=== PATIENT | female | born 1985 | race Caucasian/White ===

== ENCOUNTER 2016-06-26 15:51 | Emergency (ER) | payer OTHER ==
[2016-06-26 16:16] VITALS: BP 109/59; PULSE 52; TEMP 97.3; BMI 30.2
[2016-06-26] MEDS ORDERED: IBUPROFEN 400 MG TABLET (FP) PO ONE ×2 (16:48→16:53)
--- NOTE | 2016-06-26 16:55 | PDOC ---
History of Present Illness - General Chief Complaint: Edema Stated Complaint: LEGS,HAND SWELLING/BACK PAIN Time Seen by Provider: 06/26/16 16:29 History Source: Patient - History of Present Illness Timing/Duration: other Associated Symptoms: denies: fever/chills, nausea/vomiting Past History - Past Medical History Allergies/Adverse Reactions: Allergies Allergy/AdvReac Type Severity Reaction Status Date / Time No Known Allergies Allergy Verified 06/26/16 16:15 Home Medications: Ambulatory Orders Cephalexin [Keflex] 500 mg PO Q6H #28 capsule 06/26/16 Ibuprofen [Motrin -] 800 mg PO Q6H #30 tablet 06/26/16 Asthma: No Cancer: No Cardiac Disorders: No Diabetes: No HTN: No Seizures: No Thyroid Disease: No - Reproductive History (#): 2 Para: 3 Cervical CA: No Dysfunctional Uterine Bleeding: No Ectopic : No Endometrial CA: No Polycystic Ovaries: No Therapeutic (s) & number: No Tubal Ligation: No Spontaneous : 0 - Immunization History Immunization Up to Date: Yes - Psycho/Social/Smoking Cessation Hx Anxiety: No Suicidal Ideation: No Smoking History: Never smoked Have you smoked in the past 12 months: No Number of Cigarettes Smoked Daily: 0 Information on smoking cessation initiated: No Hx Alcohol Use: No Drug/Substance Use Hx: No Substance Use Type: None Hx Substance Use Treatment: No Review of Systems - Review of Systems Constitutional: No: Chills, Fever ABD/GI: No: Nausea, Vomiting : No: Dysuria, Flank Pain, Hematuria Musculoskeletal: Yes: Back Pain *Physical Exam - Vital Signs Last Vital Signs Temp Pulse Resp BP Pulse Ox 97.3 F L 52 L 20 109/59 98 06/26/16 16:11 06/26/16 16:11 06/26/16 16:11 06/26/16 16:11 06/26/16 16:11 - Physical Exam General Appearance: Yes: Appropriately Dressed. No: Apparent Distress HEENT: positive: Normal Voice Neck: positive: Supple Respiratory/Chest: negative: Respiratory Distress Gastrointestinal/Abdominal: positive: Soft. negative: Tender Musculoskeletal: positive: Normal Inspection. negative: CVA Tenderness, CVA Tenderness (R), Vertebral Tenderness Extremity: positive: Other (minimal erythema and tenderness to paronychium of L great toe, no induration or discharge). negative: Tender, Swelling, Erythema Integumentary: positive: Dry, Warm Neurologic: positive: Fully Oriented, Alert, Normal Mood/Affect Medical Decision Making - Medical Decision Making 06/26/16 16:49 30 yo F, , s/p tubal ligation p/w multiple complaints today including swelling to hands x 1 week. Denies pain or skin changes otherwise. No h/o same. No new meds. No truama. Also reports mid lower back pain x several days, unable to describe, approximately 6 out of 10 with no exacerbated by sitting. Not taking anything for pain. No abd pain, n/v or dysuria. Patient also complaining of left great toe pain that she suspects may be secondary to an ingrown nail. States she did cut off portion of nail that was growing into skin but pain persists. See exam Lower back pain M/l MSK No redflags at this time, i.e infxn, etc -dc w/ pain control B/l hand swelling No obvious swelling on exam and no skin changes otherwise -pmd f/u as needed Early paronychia +ttp to paronychim of L great toe, no induration to drain -dc w/ abx and warm compress w/ instructions to return for worsening 06/26/16 16:59 06/26/16 17:30 *DC/Admit/Observation/Transfer Diagnosis at time of Disposition: Back pain Qualifiers: Back pain location: low back pain Chronicity: acute Back pain laterality: bilateral Sciatica presence: without sciatica Qualified Code(s): M54.5 - Low back pain Paronychia Qualifiers: Laterality: left Qualified Code(s): L03.012 - Cellulitis of left finger - Discharge Dispostion Disposition: HOME Condition at time of disposition: Good - Prescriptions Prescriptions: Cephalexin [Keflex] 500 mg PO Q6H #28 capsule Ibuprofen [Motrin -] 800 mg PO Q6H #30 tablet - Patient Instructions Printed Discharge Instructions: DI for Low Back Pain, DI for Paronychia Additional Instructions: Apply warm compresses several times a day to L toe and take antibiotics as directed Return to ED for worsening of symptoms, otherwise follow up with your PMD
[2016-06-26 17:02] LABS: URINE APPEARANCE CLEAR; URINE BILIRUBIN NEGATIVE (NEGATIVE); URINE COLOR LTYELLOW; URINE GLUCOSE (UA) NEGATIVE (NEGATIVE); URINE KETONE NEGATIVE (NEGATIVE); URINE LEUK ESTERASE NEGATIVE (NEGATIVE); URINE NITRITE NEGATIVE (NEGATIVE); URINE PROTEIN NEGATIVE (NEGATIVE); URINE UROBILINOGEN NEGATIVE E.U./dl (0.2-1.0)
[2016-06-26 17:21] LABS: URINE BLOOD 2+ (NEGATIVE)
[2016-06-26 18:09] LABS: URINE MUCUS RARE; URINE RBC 30 /hpf (0-3); URINE WBC 1 /hpf (3-5)
== END 2016-06-26 17:44 | disposition home or self-care (01) ==
LOC: JERFT 15:51 → JER 15:51 → JERFT 17:44
DX: M54.5 Low back pain (principal); L03.032 Cellulitis of left toe
CPT/HCPCS: 81003; 81015; 84703; 99281-25

== ENCOUNTER 2016-08-01 23:28 | Emergency (ER) | payer OTHER ==
[2016-08-02] VITALS: TEMP 98.1; BMI 30.2
[2016-08-02 00:10] LABS: URINE APPEARANCE SLCLOUDY; URINE BILIRUBIN NEGATIVE (NEGATIVE); URINE COLOR YELLOW; URINE GLUCOSE (UA) NEGATIVE (NEGATIVE); URINE KETONE NEGATIVE (NEGATIVE); URINE NITRITE NEGATIVE (NEGATIVE); URINE PROTEIN NEGATIVE (NEGATIVE); URINE UROBILINOGEN NEGATIVE E.U./dl (0.2-1.0)
[2016-08-02 00:14] LABS: URINE BLOOD 3+ (NEGATIVE); URINE LEUK ESTERASE 1+ (NEGATIVE)
[2016-08-02 00:15] LABS: URINE BACTERIA RARE /hpf (NONE SEEN); URINE MUCUS RARE; URINE RBC 51 /hpf (0-3); URINE WBC 55 /hpf (3-5)
--- NOTE | 2016-08-02 00:34 | PDOC ---
History of Present Illness - General History Source: Patient Exam Limitations: No Limitations - History of Present Illness Initial Comments: 08/02/16 01:42 The patient is a 30 year old female () with no significant past medical history who presents to the ED with back pain for 3 weeks. Patient reports lower back left sided and right sided back pain that is worsened when laying down. She reports her symptoms are progressively worsening and her back pain is now constant. Patient states she developed nausea, diarrhea, headache, and foul smelling urine earlier today. Patient states her last menstrual period was 2 months ago. Denies fever or chills. Denies vomiting or abdominal pain. Denies chest pain or shortness of breath. Denies any other symptoms. Social hx: Patient has 2 twin boys (5 years old), a 22 month old son, and a 8 month old son. Surgical hx: Tubal ligation <Oneida Carrera - Last Filed: 08/02/16 01:42> <Piero Oliveira - Last Filed: 08/02/16 04:48> - General Chief Complaint: Pain Stated Complaint: PAIN, ACUTE Past History <Oneida Carrera - Last Filed: 08/02/16 01:42> - Past Medical History Asthma: No Cancer: No Cardiac Disorders: No Diabetes: No HTN: No Seizures: No Thyroid Disease: No - Reproductive History (#): 2 Para: 3 Cervical CA: No Dysfunctional Uterine Bleeding: No Ectopic : No Endometrial CA: No Polycystic Ovaries: No Therapeutic (s) & number: No Tubal Ligation: No Spontaneous : 0 - Immunization History Immunization Up to Date: Yes - Psycho/Social/Smoking Cessation Hx Anxiety: No Suicidal Ideation: No Smoking History: Never smoked Have you smoked in the past 12 months: No Number of Cigarettes Smoked Daily: 0 Hx Alcohol Use: No Drug/Substance Use Hx: No Substance Use Type: None Hx Substance Use Treatment: No <Piero Oliveira - Last Filed: 08/02/16 04:48> - Past Medical History Allergies/Adverse Reactions: Allergies Allergy/AdvReac Type Severity Reaction Status Date / Time No Known Allergies Allergy Verified 08/01/16 23:58 Home Medications: Ambulatory Orders Cephalexin Monohydrate [Keflex -] 500 mg PO Q6H #40 capsule 08/02/16 Metoclopramide HCl [Reglan -] 10 mg PO TID #21 tablet 08/02/16 Oxycodone HCl/Acetaminophen [Percocet 5-325 mg Tablet] 1 - 2 tab PO Q4H #20 tablet MDD 4 08/02/16 Review of Systems - Review of Systems Able to Perform ROS?: Yes Comments:: 08/02/16 01:42 GENERAL/CONSTITUTIONAL: No fever or chills. No weakness. HEAD, EYES, EARS, NOSE AND THROAT: No change in vision. No ear pain or discharge. No sore throat. CARDIOVASCULAR: No chest pain or shortness of breath. RESPIRATORY: No cough, wheezing, or hemoptysis. GASTROINTESTINAL: + nausea, diarrhea No vomiting, or constipation. GENITOURINARY:+ foul smelling urine. No dysuria, frequency. MUSCULOSKELETAL: + back pain. No joint or muscle swelling or pain. No neck. SKIN: No rash NEUROLOGIC: + headache. No vertigo, loss of consciousness, or change in strength /sensation. ENDOCRINE: No increased thirst. No abnormal weight change. HEMATOLOGIC/LYMPHATIC: No anemia, easy bleeding, or history of blood clots. ALLERGIC/IMMUNOLOGIC: No hives or skin allergy. All Other Systems: Reviewed and Negative <Oneida Carrera - Last Filed: 08/02/16 01:42> *Physical Exam - Vital Signs Last Vital Signs Temp Pulse Resp BP Pulse Ox 98.1 F 65 18 116/71 100 08/01/16 23:59 08/01/16 23:59 08/01/16 23:59 08/01/16 23:59 08/01/16 23:59 - Physical Exam Comments: 08/02/16 01:42 GENERAL: Awake, alert, and fully oriented, in no acute distress HEAD: No signs of trauma EYES: PERRLA, EOMI, sclera anicteric, conjunctiva clear ENT: Auricles normal inspection, hearing grossly normal, nares patent, oropharynx clear without exudates. Moist mucosa NECK: Normal ROM, supple, no lymphadenopathy, JVD, or masses LUNGS: Breath sounds equal, clear to auscultation bilaterally. No wheezes, and no crackles HEART: Regular rate and rhythm, normal S1 and S2, no murmurs, rubs or gallops ABDOMEN: Soft, nontender, normoactive bowel sounds. No guarding, no rebound. No masses EXTREMITIES: Normal range of motion, no edema. No clubbing or cyanosis. No cords, erythema, or tenderness Back: + lloyds sign bilaterally NEUROLOGICAL: Normal speech SKIN: Warm, Dry, normal turgor, no rashes or lesions noted. <Oneida Carrera - Last Filed: 08/02/16 01:42> - Vital Signs Last Vital Signs Temp Pulse Resp BP Pulse Ox 98.1 F 65 18 116/71 100 08/01/16 23:59 08/01/16 23:59 08/01/16 23:59 08/01/16 23:59 08/01/16 23:59 <Piero Oliveira - Last Filed: 08/02/16 04:48> ED Treatment Course - ADDITIONAL ORDERS Additional order review: Laboratory Results 08/02/16 00:01 Urine Color Yellow Urine Appearance Slcloudy Urine pH 5.0 Urine Protein Negative Urine Glucose (UA) Negative Urine Ketones Negative Urine Blood 3+ H Urine Nitrite Negative Urine Bilirubin Negative Urine Urobilinogen Negative Ur Leukocyte Esterase 1+ H Urine RBC 51 Urine WBC 55 Ur Epithelial Cells Rare Urine Bacteria Rare Urine Mucus Rare Urine HCG, Qual Negative <Oneida Carrera - Last Filed: 08/02/16 01:42> - LABORATORY CBC & Chemistry Diagram: 08/02/16 01:39 08/02/16 01:39 - ADDITIONAL ORDERS Additional order review: Laboratory Results 08/02/16 00:01 Urine Color Yellow Urine Appearance Slcloudy Urine pH 5.0 Urine Protein Negative Urine Glucose (UA) Negative Urine Ketones Negative Urine Blood 3+ H Urine Nitrite Negative Urine Bilirubin Negative Urine Urobilinogen Negative Ur Leukocyte Esterase 1+ H Urine RBC 51 Urine WBC 55 Ur Epithelial Cells Rare Urine Bacteria Rare Urine Mucus Rare Urine HCG, Qual Negative <Piero Oliveira - Last Filed: 08/02/16 04:48> *DC/Admit/Observation/Transfer - Attestations Scribe Attestion: 08/02/16 01:42 Documentation prepared by Oneida Carrera, acting as medical authorization specialist for Piero Oliveira MD <Oneida Carrera - Last Filed: 08/02/16 01:42> - Discharge Dispostion Admit: No - Attestations Physician Attestion: 08/02/16 00:34 I, Dr. Piero Oliveira, attest that this document has been prepared under my direction and personally reviewed by me in its entirety. I further attest, that it accurately reflects all work, treatment, procedures and medical decision -making performed by me. <Piero Oliveira - Last Filed: 08/02/16 04:48> Diagnosis at time of Disposition: Calculus of kidney - Discharge Dispostion Disposition: HOME Condition at time of disposition: Good - Prescriptions Prescriptions: Cephalexin Monohydrate [Keflex -] 500 mg PO Q6H #40 capsule Oxycodone HCl/Acetaminophen [Percocet 5-325 mg Tablet] 1 - 2 tab PO Q4H #20 tablet MDD 4 Metoclopramide HCl [Reglan -] 10 mg PO TID #21 tablet - Referrals Referrals: Ramez Ramires MD [Primary Care Provider] - Jayant Villarreal MD., [Staff Physician] - - Patient Instructions Printed Discharge Instructions: DI for Kidney Stones Additional Instructions: Sherie- Drink lots of water, See the Urologist This Week. Reglan is for nausea. Keflex is your antibiotic. Percocet is for bad pain, only take it if you absolutely need it..... it is addicting. Return to us if worse. Best- Dr. Piero Oliveira
[2016-08-02] MEDS ORDERED: KETOROLAC TROMETHAMINE 30 MG/1 ML VIAL IVPUSH ONE (01:30)
[2016-08-02] MEDS ORDERED: SODIUM CHLORIDE 1,000 ML IV STA (01:30)
[2016-08-02 01:49] LABS: BASOPHIL 0.5 % (0-2.0); EOSINOPHIL 1.2 % (0-4.5); MCHC 33.1 g/dl (32.0-36.0); MEAN CELL VOLUME 87.7 fl (80-96); MEAN PLT VOLUME 7.7 fl (7.5-11.1); NEUTROPHILS 59.1 % (42.8-82.8); PLATELET COUNT 257 K/MM3 (134-434); RDW 13.9 % (11.6-15.6); WHITE BLOOD COUNT 7.7 K/mm3 (4.0-10.0)
[2016-08-02] MEDS ORDERED: KETOROLAC TROMETHAMINE 30 MG/1 ML VIAL ONE (02:01)
[2016-08-02 02:24] LABS: ALBUMIN 3.7 g/dl (3.4-5.0); ANION GAP 8 (8-16); BILIRUBIN,TOTAL 0.2 mg/dL (0.2-1.0); CALCIUM 8.8 mg/dL (8.5-10.1); CO2 25 mmol/L (21-32); CREATININE 0.5 mg/dL (0.55-1.02); GLUCOSE,RANDOM 89 mg/dL (74-106); SGOT/AST 16 U/L (15-37); SGPT/ALT 19 U/L (12-78); TOT PROT 7.5 g/dl (6.4-8.2)
[2016-08-02 02:25] LABS: ALK PHOS 86 U/L (45-117)
[2016-08-02 04:56] VITALS: BP 114/72; PULSE 61
== END 2016-08-02 04:51 | disposition home or self-care (01) ==
LOC: JER 23:28
PROC: 3E0333Z Introduction of Anti-inflammatory into Peripheral Vein, Percutaneous Approach (ICD-10-PCS; principal; 2016-08-01)
DX: N20.0 Calculus of kidney (principal)
CPT/HCPCS: 36415; 74176-TC; 80053; 81003; 81015; 84703; 85025; 87040; 87086; 87186; 96374; 99282-25

== ENCOUNTER 2017-03-10 21:29 | Emergency (ER) | payer OTHER ==
--- NOTE | 2017-03-10 21:45 | PDOC ---
Rapid Medical Evaluation Time Seen by Provider: 03/10/17 21:37 Medical Evaluation: Allergies Allergy/AdvReac Type Severity Reaction Status Date / Time No Known Allergies Allergy Verified 08/01/16 23:58 03/10/17 21:37 The patient presents with a chief complaint of: Vaginal bleeding. LMP 01/25/17. Pt. states she had a tubal ligation. Admits to nausea, lethargy, abdominal pain. I have performed a brief in-person evaluation of this patient; Pertinent physical exam findings: ambulatory, breathing easily, Soft non-tender abdomen on exam. CTAB I have ordered the following: CBC, CMP, type and screen, beta-hcg The patient will proceed to the ED for further evaluation.
[2017-03-10 21:47] VITALS: BP 118/74; PULSE 95; TEMP 98.6; BMI 32.1
[2017-03-10 22:25] LABS: BASO % 0.5 % (0-2.0); EOS % 0.7 % (0-4.5); HEMATOCRIT 38.6 % (32.4-45.2); HEMOGLOBIN 12.9 GM/dL (10.7-15.3); LYMPH % 29.7 % (8-40); MCH 29.1 pg (25.7-33.7); MCHC 33.5 g/dl (32.0-36.0); MEAN PLT VOLUME 7.5 fl (7.5-11.1); MONO % 6.9 % (3.8-10.2); NEUT % 62.2 % (42.8-82.8); PLATELET COUNT 288 K/MM3 (134-434); RBC 4.44 M/mm3 (3.60-5.2); RDW 13.7 % (11.6-15.6); WHITE BLOOD COUNT 9.8 K/mm3 (4.0-10.0)
--- NOTE | 2017-03-10 22:35 | PDOC ---
History of Present Illness - General History Source: Patient Exam Limitations: No Limitations - History of Present Illness Initial Comments: 03/10/17 22:35 The patient is a 31 year old female (), with no significant past medical history, who presents to the emergency department with nausea, increased appetite, abdominal pain, and vaginal bleeding for approximately 1 day. Patient reports noting light vaginal spotting with associated lower abdominal pain, which she describes as crampy in nature. Patient reports recent missed menses on 02/25/17, however, she states she had a tubal ligation about 1.5 years ago. Patient reports her abdominal pain is different than her period. She reports associated pain with urination, but denies any hematuria, frequency, or urgency. Patient endorses nausea and increased appetite over the past 2 weeks. Patient states she is scheduled for US follow-up with her [facility] in 2 days. Patient denies any fever or chills. She denies any recent travel, sick contacts , or heavy lifting. Allergies: NKDA Past Surgical History: None reported Social History: Non smoker. No ETOH or recreational drug use. <Debbie Davis - Last Filed: 03/11/17 00:57> <Jill Dean - Last Filed: 03/11/17 01:05> - General Chief Complaint: Vaginal Bleeding Stated Complaint: VAGINAL BLEEDING Time Seen by Provider: 03/10/17 21:37 Past History <Debbie Davis - Last Filed: 03/11/17 00:57> - Past Medical History Asthma: No Cancer: No Cardiac Disorders: No Diabetes: No HTN: No Seizures: No Thyroid Disease: No - Reproductive History (#): 2 Para: 3 Cervical CA: No Dysfunctional Uterine Bleeding: No Ectopic : No Endometrial CA: No Polycystic Ovaries: No Therapeutic (s) & number: No Tubal Ligation: No Spontaneous : 0 - Immunization History Immunization Up to Date: Yes - Suicide/Smoking/Psychosocial Hx Smoking History: Never smoked Have you smoked in the past 12 months: No Number of Cigarettes Smoked Daily: 0 Hx Alcohol Use: No Drug/Substance Use Hx: No Substance Use Type: None Hx Substance Use Treatment: No <Jill Dean - Last Filed: 03/11/17 01:05> - Past Medical History Allergies/Adverse Reactions: Allergies Allergy/AdvReac Type Severity Reaction Status Date / Time No Known Allergies Allergy Verified 03/10/17 21:39 Home Medications: Ambulatory Orders Ondansetron [Zofran Odt -] 4 mg SL TID PRN #10 od.tablet 03/11/17 Review of Systems - Review of Systems Able to Perform ROS?: Yes Comments:: 03/10/17 22:35 GENERAL/CONSTITUTIONAL: No fever or chills. No weakness. HEAD, EYES, EARS, NOSE AND THROAT: No change in vision. No ear pain or discharge. No sore throat. GASTROINTESTINAL: No nausea, vomiting, diarrhea or constipation. GENITOURINARY: No dysuria, frequency, or change in urination. CARDIOVASCULAR: No chest pain or shortness of breath. RESPIRATORY: No cough, wheezing, or hemoptysis. MUSCULOSKELETAL: No joint or muscle swelling or pain. No neck or back pain. SKIN: No rash NEUROLOGIC: No headache, vertigo, loss of consciousness, or change in strength/ sensation. ENDOCRINE: Yes increased appetite. No increased thirst. No abnormal weight change. HEMATOLOGIC/LYMPHATIC: No anemia, easy bleeding, or history of blood clots. ALLERGIC/IMMUNOLOGIC: No hives or skin allergy. <Debbie Davis - Last Filed: 03/11/17 00:57> *Physical Exam - Vital Signs Last Vital Signs Temp Pulse Resp BP Pulse Ox 98.6 F 95 H 16 118/74 100 03/10/17 21:39 03/10/17 21:39 03/10/17 21:39 03/10/17 21:39 03/10/17 21:39 - Physical Exam Comments: 03/10/17 22:36 Constitutional: Awake, alert, oriented. No acute distress. Head: Normocephalic. Atraumatic Eyes: PERRL. EOMI. Conjunctivae are not pale. ENT: Mucous membranes are moist and intact. Posterior pharynx without exudates or erythema. Uvula midline. Neck: Supple. Full ROM. No lymphadenopathy. Cardiovascular: Regular rate. Regular rhythm. S1, S2 regular. Distal pulses are 2+ and symmetric. Pulmonary/Chest: No evidence of respiratory distress. Clear to auscultation bilaterally No wheezing, rales or rhonchi. Abdominal: Soft and non-distended. There is no tenderness. No rebound, guarding or rigidity. No organomegaly. No palpable masses. Good bowel sounds. Pelvic: Blood vaginal vault. Cervical Os is closed. No cervical motion tenderness. No adnexal tenderness. Back: No CVA tenderness. Musculoskeletal: No edema. No cyanosis. No clubbing. Full range of motion in all extremities. No calf tenderness. Radial/pedal pulses are intact and 2+ bilaterally Skin: Skin is warm and dry. No petechiae. No purpura. Neurological: Alert and oriented to person, place, and time. Cranial nerves II -XII are grossly intact. Normal speech. Strength is grossly symmetric. No sensory deficits. <Debbie Davis - Last Filed: 03/11/17 00:57> - Vital Signs Last Vital Signs Temp Pulse Resp BP Pulse Ox 98.6 F 95 H 16 118/74 100 03/10/17 21:39 03/10/17 21:39 03/10/17 21:39 03/10/17 21:39 03/10/17 21:39 <Jill Dean - Last Filed: 03/11/17 01:05> ED Treatment Course - LABORATORY CBC & Chemistry Diagram: 03/10/17 10:20 03/10/17 10:20 - ADDITIONAL ORDERS Additional order review: 03/10/17 10:20 RBC 4.44 MCV 87.0 MCHC 33.5 RDW 13.7 MPV 7.5 Neutrophils % 62.2 Lymphocytes % 29.7 Monocytes % 6.9 Eosinophils % 0.7 Basophils % 0.5 - RADIOLOGY Radiograph Interpretation: 03/11/17 00:57 EXAM: Transvaginal US INTERPRETED BY: Dr. Fishman REVIEWED BY: Dr. Dean IMPRESSION: No ovarian torsion. Color flow with appropriate arterial and venous waveforms. Small physiologic free fluid right adnexa. Normal uterus. Endometrial stripe complex 10 mm thick. <Debbie Davis - Last Filed: 03/11/17 00:57> - LABORATORY CBC & Chemistry Diagram: 03/10/17 10:20 03/10/17 10:20 - ADDITIONAL ORDERS Additional order review: 03/10/17 10:20 RBC 4.44 MCV 87.0 MCHC 33.5 RDW 13.7 MPV 7.5 Neutrophils % 62.2 Lymphocytes % 29.7 Monocytes % 6.9 Eosinophils % 0.7 Basophils % 0.5 <Jill Dean - Last Filed: 03/11/17 01:05> Medical Decision Making - Medical Decision Making 03/10/17 22:34 a/p: 31yo female with irregular uterine bleeding -labs -ucg -ua -pelvic ultrasound pending UCG results 03/11/17 00:48 hcg negative ultrasound does not show acute pathology pending UA will give motrin and zofran odt 03/11/17 01:02 urine +blood and protein stable for d/c to home and follow up with out pt docs blood in urine from menstrual cycle 03/11/17 01:05 pt stable for d/c to home discussed ua results <Jill Dean - Last Filed: 03/11/17 01:05> *DC/Admit/Observation/Transfer - Attestations Scribe Attestion: 03/10/17 22:36 Documentation prepared by Debbie Davis, acting as medical director/head team physician for Jill Dean DO. <Debbie Davis - Last Filed: 03/11/17 00:57> - Discharge Dispostion Admit: No - Attestations Physician Attestion: 03/11/17 00:51 I, Dr. Jill Dean DO, attest that this document has been prepared under my direction and personally reviewed by me in its entirety. I further attest, that it accurately reflects all work, treatment, procedures and medical decision -making performed by me. <Jill Dean - Last Filed: 03/11/17 01:05> Diagnosis at time of Disposition: Dysfunctional uterine bleeding, Nausea - Discharge Dispostion Disposition: HOME Condition at time of disposition: Stable - Prescriptions Prescriptions: Ondansetron [Zofran Odt -] 4 mg SL TID PRN #10 od.tablet PRN Reason: Nausea - Referrals Referrals: Franky Abraham MD [Staff Physician] - - Patient Instructions Printed Discharge Instructions: DI for Abnormal Uterine Bleeding Additional Instructions: Please make an appointment to follow up with your [facility]. Please return to the ED with any further complaints. Please take all meds as prescribed. Please take tylenol or motrin as needed for pain.
[2017-03-10 22:53] LABS: ANION GAP 7 (8-16); BILIRUBIN,TOTAL 0.3 mg/dL (0.2-1.0); BLOOD UREA NITROGEN 19 mg/dL (7-18); CALCIUM 7.7 mg/dL (8.5-10.1); CHLORIDE 105 mmol/L (98-107); CO2 24 mmol/L (21-32); CREATININE 0.6 mg/dL (0.55-1.02); GLUCOSE,RANDOM 88 mg/dL (74-106); POTASSIUM 3.9 mmol/L (3.5-5.1); SGOT/AST 10 U/L (15-37); SGPT/ALT 17 U/L (12-78); SODIUM 136 mmol/L (136-145); TOT PROT 7.9 g/dl (6.4-8.2)
[2017-03-10 22:55] LABS: ALK PHOS 72 U/L (45-117)
[2017-03-11] MEDS ORDERED: IBUPROFEN 600 MG TABLET (FP) PO ONE ×2 (00:47→00:50)
[2017-03-11] MEDS ORDERED: ONDANSETRON *ODT* 4 MG TABLET SL ONE (00:48)
[2017-03-11] MEDS ORDERED: ONDANSETRON *ODT* 4 MG TABLET ONE (00:50)
[2017-03-11 00:52] LABS: URINE APPEARANCE CLEAR; URINE BILIRUBIN NEGATIVE (NEGATIVE); URINE BLOOD 3+ (NEGATIVE); URINE COLOR YELLOW; URINE GLUCOSE (UA) NEGATIVE (NEGATIVE); URINE KETONE NEGATIVE (NEGATIVE); URINE LEUK ESTERASE NEGATIVE (NEGATIVE); URINE NITRITE NEGATIVE (NEGATIVE); URINE UROBILINOGEN NEGATIVE mg/dL (0.2-1.0)
[2017-03-11 00:53] LABS: URINE PROTEIN 1+ (NEGATIVE)
[2017-03-11 00:57] LABS: CALCIUM OXALATE CRYSTALS RARE /hpf (NONE SEEN); EPI CELLS RARE /HPF (FEW); URINE BACTERIA FEW /hpf (NONE SEEN); URINE MUCUS RARE
== END 2017-03-11 01:13 | disposition home or self-care (01) ==
LOC: JER 21:29
DX: N93.8 Other specified abnormal uterine and vaginal bleeding (principal); R11.0 Nausea
CPT/HCPCS: 36415; 76830-TC; 80053; 81003; 81015; 84702; 85025; 86850; 86900; 86901; 99281-25

== ENCOUNTER 2017-04-04 19:37 | Emergency (ER) | payer OTHER ==
[2017-04-04 19:48] VITALS: BP 120/69; PULSE 85; TEMP 97.6; BMI 28.3
[2017-04-04 23:25] LABS: BASO % 0.4 % (0-2.0); EOS % 0.8 % (0-4.5); HEMATOCRIT 37.6 % (32.4-45.2); HEMOGLOBIN 12.7 GM/dL (10.7-15.3); LYMPH % 32.3 % (8-40); MCH 29.7 pg (25.7-33.7); MCHC 33.7 g/dl (32.0-36.0); MEAN CELL VOLUME 88.2 fl (80-96); MEAN PLT VOLUME 7.6 fl (7.5-11.1); MONO % 6.1 % (3.8-10.2); NEUT % 60.4 % (42.8-82.8); PLATELET COUNT 270 K/MM3 (134-434); RBC 4.27 M/mm3 (3.60-5.2); WHITE BLOOD COUNT 9.7 K/mm3 (4.0-10.0)
[2017-04-04 23:28] LABS: URINE APPEARANCE SLCLOUDY; URINE BILIRUBIN NEGATIVE (NEGATIVE); URINE BLOOD 3+ (NEGATIVE); URINE COLOR YELLOW; URINE GLUCOSE (UA) NEGATIVE (NEGATIVE); URINE KETONE NEGATIVE (NEGATIVE); URINE LEUK ESTERASE NEGATIVE (NEGATIVE); URINE NITRITE NEGATIVE (NEGATIVE); URINE PROTEIN 1+ (NEGATIVE)
[2017-04-04 23:31] LABS: EPI CELLS FEW /HPF (FEW); URINE BACTERIA RARE /hpf (NONE SEEN); URINE MUCUS MANY
[2017-04-04 23:48] LABS: ALBUMIN 3.7 g/dl (3.4-5.0); ANION GAP 11 (8-16); BLOOD UREA NITROGEN 16 mg/dL (7-18); CALCIUM 8.6 mg/dL (8.5-10.1); CHLORIDE 105 mmol/L (98-107); CO2 23 mmol/L (21-32); CREATININE 0.6 mg/dL (0.55-1.02); GLUCOSE,RANDOM 87 mg/dL (74-106); SGOT/AST 15 U/L (15-37); SGPT/ALT 18 U/L (12-78); SODIUM 139 mmol/L (136-145)
[2017-04-04 23:50] LABS: ALK PHOS 70 U/L (45-117); BILIRUBIN,TOTAL 0.2 mg/dL (0.2-1.0); TOT PROT 7.8 g/dl (6.4-8.2)
--- NOTE | 2017-04-05 00:04 | PDOC ---
History of Present Illness - General Chief Complaint: Pain Stated Complaint: PCP SENT/PAIN, ACUTE Time Seen by Provider: 04/04/17 22:01 History Source: Patient Exam Limitations: No Limitations - History of Present Illness Initial Comments: 04/04/17 23:49 Patient is a 31-year-old female with history of 1, complaining of abdominal pain 1 month associated with daily intermittent nausea and diarrhea. States 5/10 pain is in the lower abdomen mostly constant. About 2 weeks ago went to her [employer] for evaluation. Had ultrasound of the pelvis and then ultrasound of her kidneys, with no acute findings. She was also given prescriptions for Zofran for the nausea with no relief of symptoms. States 2 days ago she developed left-sided sharp stabbing pain 8/10 but intermittently radiated to her bladder and down the left leg. Today she went to urgent care with meds for evaluation of this pain. She states that the CAT scan with oral contrast only of her abdomen was done, just about 5:00 PM was called and referred to the emergency room for evaluation of appendicitis. Denies fever, chills, dysuria. PMD: Dr. Fortune PMHX: as above PSOCHX: neg ALL: NKDA GENERAL/CONSTITUTIONAL: [No fever or chills. No weakness. No weight change.] HEAD, EYES, EARS, NOSE AND THROAT: [No change in vision. No ear pain or discharge. No sore throat.] CARDIOVASCULAR: [No chest pain or shortness of breath.] RESPIRATORY: [No cough, wheezing, or hemoptysis.] GASTROINTESTINAL: (+) nausea, (-) vomiting, (+) diarrhea (-) constipation. No rectal bleeding.] GENITOURINARY: [No dysuria, frequency, or change in urination.] MUSCULOSKELETAL: [No joint or muscle swelling or pain. No neck or back pain.] SKIN AND BREASTS: [No rash or easy bruising.] NEUROLOGIC: [No headache, vertigo, loss of consciousness, or loss of sensation.] PSYCHIATRIC: [No depression or anxiety.] ENDOCRINE: [No increased thirst. No abnormal weight change.] HEMATOLOGIC/LYMPHATIC: [No anemia, easy bleeding, or history of blood clots.] ALLERGIC/IMMUNOLOGIC: [No hives or skin allergy. No latex allergy.] GENERAL: [The patient is awake, alert, and fully oriented, in no acute distress. ] HEAD: [Normal with no signs of trauma.] EYES: [Pupils equal, round and reactive to light, extraocular movements intact, sclera anicteric, conjunctiva clear.] ENT: [Ears normal, nares patent, oropharynx clear without exudates. Moist mucous membranes.] NECK: [Normal range of motion, supple without lymphadenopathy, JVD, or masses.] LUNGS: [Breath sounds equal, clear to auscultation bilaterally. No wheezes, and no crackles.] HEART: [Regular rate and rhythm, normal S1 and S2 without murmur, rub.] ABDOMEN: [Soft, (+) tenderness lower abd/suprapubic tenderness LLQ > RLQ, normoactive bowel sounds. No guarding, no rebound. No masses.] EXTREMITIES: [Normal range of motion, no edema. No clubbing or cyanosis. No cords, erythema, or tenderness.] NEUROLOGICAL: [Cranial nerves II through XII grossly intact. Normal speech, normal gait.] PSYCH: [Normal mood, normal affect.] SKIN: [Warm, Dry, normal turgor, no rashes or lesions noted.] Past History - Past Medical History Allergies/Adverse Reactions: Allergies Allergy/AdvReac Type Severity Reaction Status Date / Time No Known Allergies Allergy Verified 03/10/17 21:39 Home Medications: Ambulatory Orders Ondansetron [Zofran Odt -] 4 mg SL TID PRN #10 od.tablet 03/11/17 Asthma: No Cancer: No Cardiac Disorders: No COPD: No Diabetes: No HTN: No Seizures: No Thyroid Disease: No - Reproductive History (#): 2 Para: 3 Cervical CA: No Dysfunctional Uterine Bleeding: No Ectopic : No Endometrial CA: No Polycystic Ovaries: No Therapeutic (s) & number: No Tubal Ligation: No Spontaneous : 0 - Immunization History Immunization Up to Date: Yes - Suicide/Smoking/Psychosocial Hx Smoking History: Never smoked Have you smoked in the past 12 months: No Number of Cigarettes Smoked Daily: 0 Information on smoking cessation initiated: No Hx Alcohol Use: No Drug/Substance Use Hx: No Substance Use Type: None Hx Substance Use Treatment: No *Physical Exam - Vital Signs Last Vital Signs Temp Pulse Resp BP Pulse Ox 97.6 F 85 20 120/69 98 04/04/17 19:44 04/04/17 19:44 04/04/17 19:44 04/04/17 19:44 04/04/17 19:44 ED Treatment Course - LABORATORY CBC & Chemistry Diagram: 04/04/17 23:15 04/04/17 23:15 - ADDITIONAL ORDERS Additional order review: Laboratory Results 04/04/17 23:15 Urine Color Yellow Urine Appearance Slcloudy Urine pH 6.0 Ur Specific [place] 1.023 Urine Protein 1+ H Urine Glucose (UA) Negative Urine Ketones Negative Urine Blood 3+ H Urine Nitrite Negative Urine Bilirubin Negative Urine Urobilinogen 2.0 H Ur Leukocyte Esterase Negative Urine WBC (Auto) 4 Urine RBC (Auto) 848 Ur Epithelial Cells Few Urine Bacteria Rare Urine Mucus Many 04/04/17 23:15 RBC 4.27 MCV 88.2 MCHC 33.7 RDW 14.0 MPV 7.6 Neutrophils % 60.4 Lymphocytes % 32.3 Monocytes % 6.1 Eosinophils % 0.8 Basophils % 0.4 Medical Decision Making - Medical Decision Making 04/05/17 00:04 Patient is a 31-year-old female with history of 1, complaining of abdominal pain 1 month associated with daily intermittent nausea and diarrhea, 2 days for LLQ abd pain radiating to the bladder and left leg. Low suspicious for appendicitis since this has been going on x 1 month, however ct scan done at Urgent care with reading of suspicion for early appendicitis. will get labs -wbc and repeat abd exam. 04/05/17 00:30 Patient found sleeping comfortably, no nausea, no vomiting ABD exam the same mild tenderness in the LLQ labs reviewed with the patient and copies given Patient instructed that if the pain worsening and localizes to the rlq, with vomiting, fevers, chill, anorexia then return to the ed immediately. I discussed the physical exam findings, ancillary test results and final diagnoses with the patient. I answered all of the patient's questions. The patient was satisfied with the care received and felt comfortable with the discharge plan and treatment plan. The Patient agrees to follow up with the primary care physician within 24-72 hours. *DC/Admit/Observation/Transfer Diagnosis at time of Disposition: Abdominal pain Qualifiers: Abdominal location: generalized Qualified Code(s): R10.84 - Generalized abdominal pain - Discharge Dispostion Disposition: HOME Condition at time of disposition: Stable - Referrals Referrals: Jason Fortune MD [Primary Care Provider] - Slick Celestin MD [Staff Physician] - - Patient Instructions Printed Discharge Instructions: DI for Abdominal Pain-Adult Additional Instructions: Your Discharge Instructions: You must call primary care physician within 24 hours to arrange follow-up. Return to the Emergency Department with any new, persistent or worsening symptoms, for fever, chills, SOB, dizziness or any other concerning changes that may occur. If the pain worsening and localizes to the rlq, with vomiting, fevers, chill, anorexia then return to the ED immediately. follow with Urology for the blood in the urine and left flank pain. - Post Discharge Activity
== END 2017-04-05 01:28 | disposition home or self-care (01) ==
LOC: JER 19:37
DX: R10.84 Generalized abdominal pain (principal)
CPT/HCPCS: 36415; 80053; 81003; 81015; 84702; 85025; 99283-25

== ENCOUNTER 2017-04-05 11:18 | Emergency (ER) | payer OTHER ==
[2017-04-05 11:29] VITALS: BP 117/64; PULSE 90; TEMP 98.4; BMI 31.7
--- NOTE | 2017-04-05 12:03 | PDOC ---
History of Present Illness - General Chief Complaint: Revisit,Radiology Variance Stated Complaint: appendecitis Time Seen by Provider: 04/05/17 11:47 - History of Present Illness Initial Comments: 04/05/17 12:47 31 y.o. female with no reported PMH presents with a 3 days h/o exacerbation of 1 month h/o abdominal pain. Patient states the pain is intermittent, cramping, non-radiating and associated with some nausea but no vomiting. Patient also notes a 5 day h/o diarrhea (5 non-bloody, watery stool) but no associated fevers , chills, dysuria/hematuria. Patient was evaluated by urgent care on Wednesday ( 04/03) at which time a CT Scan showed findings consistent w/early appendicitis. Patient's LMP was finished 2 days previous. Patient notes h/o of a missed menstrual cycle in 02/25 --at that time patient was evaluated in our ED with TVUS showing no ovarian or uterine pathology. Patient denies vaginal spotting, chest pain, shortness of breath, recent travel or sick contacts. NKDA Surgical: C/S Social: denies cigarettes, denies alcohol, denies recreational drugs Past History - Past Medical History Allergies/Adverse Reactions: Allergies Allergy/AdvReac Type Severity Reaction Status Date / Time No Known Allergies Allergy Verified 04/05/17 11:28 Home Medications: Ambulatory Orders NK [No Known Home Medication] 04/05/17 Asthma: No Cancer: No Cardiac Disorders: No COPD: No Diabetes: No HTN: No Seizures: No Thyroid Disease: No - Reproductive History (#): 2 Para: 3 Cervical CA: No Dysfunctional Uterine Bleeding: No Ectopic : No Endometrial CA: No Polycystic Ovaries: No Therapeutic (s) & number: No Tubal Ligation: No Spontaneous : 0 - Immunization History Immunization Up to Date: Yes - Suicide/Smoking/Psychosocial Hx Smoking History: Never smoked Have you smoked in the past 12 months: No Number of Cigarettes Smoked Daily: 0 Information on smoking cessation initiated: No Hx Alcohol Use: No Drug/Substance Use Hx: No Substance Use Type: None Hx Substance Use Treatment: No Review of Systems - Review of Systems Constitutional: No: Chills, Fever HEENTM: No: Blurred Vision, Double Vision Respiratory: No: Cough, Shortness of Breath Cardiac (ROS): No: Chest Pain, Lightheadedness, Palpitations ABD/GI: No: Constipated, Diarrhea : No: Burning, Dysuria Psychiatric: No: Anxiety, Depression *Physical Exam - Vital Signs Last Vital Signs Temp Pulse Resp BP Pulse Ox 98.4 F 90 18 117/64 100 04/05/17 11:26 04/05/17 11:26 04/05/17 11:26 04/05/17 11:04/05/17 11:26 - Physical Exam General Appearance: Yes: Nourished, Appropriately Dressed HEENT: positive: EOMI, EDA Neck: positive: Tender, Supple Respiratory/Chest: positive: Lungs Clear Cardiovascular: positive: S1, S2 Gastrointestinal/Abdominal: positive: Normal Bowel Sounds, Tender (LUQ tenderness), Soft. negative: Distended, Guarding, Hernia, Mass Musculoskeletal: negative: CVA Tenderness (R), CVA Tenderness (L) Extremity: positive: Normal Capillary Refill, Normal Inspection Integumentary: positive: Normal Color, Dry, Warm Neurologic: positive: Fully Oriented, Alert ED Treatment Course - LABORATORY CBC & Chemistry Diagram: 04/05/17 12:04 04/05/17 12:04 Medical Decision Making - Medical Decision Making 04/05/17 12:40 31 y.o. female who presents with abdominal pain - on PE pain has some minimal LUQ tenderness. Patient's CT Scan CD from urgent care reviewed by radiology ( Dr. Craig) notes no appenidical enlargement, no thickening suggestive of appendicitis. Notes limitation of study given w/o IV contrast. Further notes L ovary normal sized. Given limited CT contrast - will repeat CT. Zofran for nausea. UA nitrite negative, leukocyte esterase negative, 3+ blood likely 2/[address] negative for acute ovarian or appendiceal pathology. Patient ambulatory, improved, tolerating PO intake. Will discharge home with return precautions and copy of CT scan for outpatient follow-up. *DC/Admit/Observation/Transfer Diagnosis at time of Disposition: Abdominal pain - Discharge Dispostion Disposition: HOME Condition at time of disposition: Good Admit: No - Referrals Referrals: Yvette Lemus [Primary Care Provider] - - Patient Instructions Printed Discharge Instructions: DI for Abdominal Pain-Adult Additional Instructions: You were evaluated today for abdominal pain. A CT scan of your abdomen showed no concerning finding. We have provided you with a copy of your CT scan. Please take this report and follow up with your primary care doctor in the next 3 days for further evaluation including referral for a colonoscopy. Return to the Emergency Department for any new/worsening/concerning symptoms. - Post Discharge Activity
[2017-04-05 12:39] LABS: HEMOGLOBIN 12.4 GM/dL (10.7-15.3); LYMPH % 28.8 % (8-40); PLATELET COUNT 272 K/MM3 (134-434); RDW 14.1 % (11.6-15.6)
[2017-04-05 12:41] LABS: BASO % 0.6 % (0-2.0); EOS % 0.5 % (0-4.5); HEMATOCRIT 37.3 % (32.4-45.2); MCH 29.2 pg (25.7-33.7); MCHC 33.3 g/dl (32.0-36.0); MEAN CELL VOLUME 87.7 fl (80-96); MEAN PLT VOLUME 7.6 fl (7.5-11.1); MONO % 6.3 % (3.8-10.2); NEUT % 63.8 % (42.8-82.8); RBC 4.26 M/mm3 (3.60-5.2); WHITE BLOOD COUNT 7.5 K/mm3 (4.0-10.0)
[2017-04-05 12:46] LABS: URINE APPEARANCE SLCLOUDY; URINE BILIRUBIN NEGATIVE (NEGATIVE); URINE BLOOD 3+ (NEGATIVE); URINE COLOR YELLOW; URINE GLUCOSE (UA) NEGATIVE (NEGATIVE); URINE KETONE NEGATIVE (NEGATIVE); URINE LEUK ESTERASE NEGATIVE (NEGATIVE); URINE NITRITE NEGATIVE (NEGATIVE); URINE PROTEIN NEGATIVE (NEGATIVE); URINE UROBILINOGEN NEGATIVE mg/dL (0.2-1.0)
[2017-04-05 13:01] LABS: EPI CELLS FEW /HPF (FEW); URINE MUCUS RARE
[2017-04-05 13:13] LABS: ALBUMIN 3.7 g/dl (3.4-5.0); ALK PHOS 65 U/L (45-117); ANION GAP 11 (8-16); BILIRUBIN,TOTAL 0.3 mg/dL (0.2-1.0); BLOOD UREA NITROGEN 14 mg/dL (7-18); CALCIUM 8.9 mg/dL (8.5-10.1); CHLORIDE 106 mmol/L (98-107); CO2 23 mmol/L (21-32); CREATININE 0.5 mg/dL (0.55-1.02); GLUCOSE,RANDOM 90 mg/dL (74-106); POTASSIUM 4.3 mmol/L (3.5-5.1); SGOT/AST 12 U/L (15-37); SGPT/ALT 17 U/L (12-78); SODIUM 140 mmol/L (136-145); TOT PROT 7.5 g/dl (6.4-8.2)
== END 2017-04-05 15:55 | disposition home or self-care (01) ==
LOC: JER 11:18
DX: R10.84 Generalized abdominal pain (principal)
CPT/HCPCS: 36415; 74177-TC; 80053; 81003; 81015; 84703; 85025; 87086; 99282-25

== ENCOUNTER 2017-07-05 18:50 | Emergency (ER) | payer OTHER ==
[2017-07-05 18:55] VITALS: BP 126/81; PULSE 77; TEMP 98.3; BMI 31.5
--- NOTE | 2017-07-05 18:57 | PDOC ---
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 Patient reports coughing with associated nasal congestion and rhinorrhea. Patient endorses post tussive vomiting (white foam) however denies any nausea or abdominal pain. Patient never experienced these symptoms before while cleaning and presents to the ED for further evaluation. Allergies: NKA PSHx: tubal ligation PCP: None <Yolanda Mendes - Last Filed: 07/05/17 19:35> - General History Source: Patient Exam Limitations: No Limitations - History of Present Illness Initial Comments: 07/05/17 19:40 HPI: denies airway swelling but feels burning, states has some nasal burning and congestion/ some clear drainage. Denies feeling of airway closure/ swelling to throat. No one else at home, and windows were opened in bathroom to aerate. Timing/Duration: reports: getting worse <Maritza Reynoso - Last Filed: 07/05/17 22:50> - General Chief Complaint: Smoke Inhalation Stated Complaint: CHEMICAL INHALATION Time Seen by Provider: 07/05/17 18:56 Past History <Yolanda Mendes - Last Filed: 07/05/17 19:35> - Past Medical History Asthma: No Cancer: No Cardiac Disorders: No COPD: No Diabetes: No HTN: No Seizures: No Thyroid Disease: No - Reproductive History (#): 2 Para: 3 Cervical CA: No Dysfunctional Uterine Bleeding: No Ectopic : No Endometrial CA: No Polycystic Ovaries: No Therapeutic (s) & number: No Tubal Ligation: No Spontaneous : 0 - Immunization History Immunization Up to Date: Yes - Suicide/Smoking/Psychosocial Hx Smoking History: Never smoked Have you smoked in the past 12 months: No Number of Cigarettes Smoked Daily: 0 Hx Alcohol Use: No Drug/Substance Use Hx: No Substance Use Type: None Hx Substance Use Treatment: No <Maritza Reynoso - Last Filed: 07/05/17 22:50> - Past Medical History Allergies/Adverse Reactions: Allergies Allergy/AdvReac Type Severity Reaction Status Date / Time No Known Allergies Allergy Verified 04/05/17 11:28 Home Medications: Ambulatory Orders Albuterol Sulfate Inhaler - [Ventolin HFA Inhaler -] 1 - 2 inh PO Q4H #1 inhaler 07/05/17 Review of Systems - Review of Systems Able to Perform ROS?: Yes Comments:: 07/05/17 19:35 CONSTITUTIONAL: Absent: fever, no chills, no fatigue EYES: Absent: visual changes RESPIRATORY: +cough Absent: no SOB GI: +vomiting. Absent: abdominal pain, no nausea, no constipation, no diarrhea SKIN: Absent: rash <Yolanda Mendes - Last Filed: 07/05/17 19:35> *Physical Exam - Vital Signs Last Vital Signs Temp Pulse Resp BP Pulse Ox 98.3 F 77 20 126/81 100 07/05/17 18:52 07/05/17 18:52 07/05/17 18:52 07/05/17 18:52 07/05/17 18:52 - Physical Exam Comments: 07/05/17 19:35 GENERAL: Well-appearing, well-nourished. No apparent distress. HEENT: +nostrils are mildly erythematous with clear drainage. +Airway patent with posterior sinus drainage. Normocephalic, atraumatic. PERRL, EOM intact. CARDIOVASCULAR: Normal S1, S2. Regular rate and rhythm. PULMONARY: +Diminished breath sounds bilaterally ABDOMEN: Soft, non-distended, non-tender. EXTREMITIES: Normal ROM in all four extremities. No gross deformities. <Yolanda Mendes - Last Filed: 07/05/17 19:35> - Vital Signs Last Vital Signs Temp Pulse Resp BP Pulse Ox 98.3 F 77 20 126/81 100 07/05/17 18:52 07/05/17 18:52 07/05/17 18:52 07/05/17 18:52 07/05/17 18:52 <Maritza Reynoso - Last Filed: 07/05/17 22:50> Medical Decision Making - Medical Decision Making 07/05/17 19:36 Maritza Reynoso NP: The scribe's documentation has been prepared under my direction and personally reviewed by me in its entirety. I confirm that the note above accurately reflects all work, treatment, procedures, and medical decision making performed by me. <Yolanda Mendes - Last Filed: 07/05/17 19:35> - Medical Decision Making 07/05/17 19:42 received 1 DuoNeb and patient states feels mildly improved, breath sounds better aerated with less diminished breath sounds. We will treat with saline aerosol to and provide additional treatment and approximate 20-30 minutes. 07/05/17 20:48 Patient much improved after saline neb, and additional DuoNeb. States feels well , no cough, and ready for discharge .pulse oximetry was 99% on room air. <Maritza Reynoso - Last Filed: 07/05/17 22:50> *DC/Admit/Observation/Transfer - Attestations Scribe Attestion: 07/05/17 19:36 Documentation prepared by Yolanda Mendes, acting as medical director of hospice for Maritza Reynoso NP <Yolanda Mendes - Last Filed: 07/05/17 19:35> - Discharge Dispostion Decision to Admit order: No <Maritza Reynoso - Last Filed: 07/05/17 22:50> Diagnosis at time of Disposition: Exposure to chemical inhalation - Discharge Dispostion Disposition: HOME Condition at time of disposition: Stable - Prescriptions Prescriptions: Albuterol Sulfate Inhaler - [Ventolin HFA Inhaler -] 1 - 2 inh PO Q4H #1 inhaler - Patient Instructions Printed Discharge Instructions: DI for Inhalation Injury Additional Instructions: Rest, drink lots of fluids: Teas, water, soups, Pedialyte Saltwater gargles Steamy showers/seem to face break up mucus Avoid contact with others until fevers and cough resolved Lots of handwashing and good hygiene Continue [id number] medications for symptomatic relief Tylenol or Motrin for fever and pain Proventil inhaler, 2 puffs 4 times a day for the next 2 days then as needed Saline nose spray to each nostril 3-4 times a day for the next 2 days then as needed Followup with private physician in one to 2 days as needed Return to emergency department for worsened symptoms, fevers, dehydration - Post Discharge Activity Forms/Work/School Notes: Back to Work
[2017-07-05] MEDS ORDERED: ALBUTEROL SO4 2.5/IPRATROPIUM 0.5 INH SOL 3 ML VIAL.NEB. NEB ONE (22:48)
== END 2017-07-05 21:05 | disposition home or self-care (01) ==
LOC: JERFT 18:50
PROC: 3E0F7GC Introduction of Other Therapeutic Substance into Respiratory Tract, Via Natural or Artificial Opening (ICD-10-PCS; principal; 2017-07-05)
DX: T54.91XA Toxic effect of unspecified corrosive substance, accidental (unintentional), initial encounter (principal); Y92.012 Bathroom of single-family (private) house as the place of occurrence of the external cause
CPT/HCPCS: 94640; 99281-25; J7620

== ENCOUNTER 2018-02-08 19:12 | Emergency (ER) | payer OTHER ==
[2018-02-08 19:31] VITALS: BP 126/71; PULSE 128; TEMP 99.8; BMI 32.1
[2018-02-08 19:42] LABS: URINE APPEARANCE CLEAR; URINE BILIRUBIN NEGATIVE (<2.0 mg/dL); URINE COLOR COLORLESS; URINE GLUCOSE (UA) NEGATIVE (NEGATIVE); URINE KETONE NEGATIVE (NEGATIVE); URINE LEUK ESTERASE NEGATIVE (NEGATIVE); URINE NITRITE NEGATIVE (NEGATIVE); URINE PROTEIN NEGATIVE (NEGATIVE); URINE UROBILINOGEN NEGATIVE mg/dL (0.2-1.0)
[2018-02-08 19:45] LABS: HCG,QUALITATIVE URINE Negative
--- NOTE | 2018-02-08 19:45 | PDOC ---
History of Present Illness - General Chief Complaint: Pain Stated Complaint: WEAKNESS Time Seen by Provider: 02/08/18 19:45 History Source: Patient Exam Limitations: No Limitations - History of Present Illness Initial Comments: 02/08/18 19:56 32 year old female with no PMH presented to ED for right back pain since today. She stated she was laying in bed when this pain began, located to her right mid thoracic paraspinal area. She described the pain as constant, sharp, non- radiating, no alleviating or aggravating factors, currently 6/10. She admitted to fever, nonproductive cough, chills today. She admitted to positive sick contacts, her children, who all have a cough and fever. She denied taking any medication for pain or fever today. Past History - Past Medical History Allergies/Adverse Reactions: Allergies Allergy/AdvReac Type Severity Reaction Status Date / Time No Known Allergies Allergy Verified 02/08/18 19:24 Home Medications: Ambulatory Orders Albuterol Sulfate Inhaler - [Ventolin HFA Inhaler -] 1 - 2 inh PO Q4H #1 inhaler 07/05/17 Asthma: No Cancer: No Cardiac Disorders: No COPD: No Diabetes: No GI Disorders: Yes (umbilical hernia) HTN: No Seizures: No Thyroid Disease: No - Reproductive History (#): 2 Para: 3 Cervical CA: No Dysfunctional Uterine Bleeding: No Ectopic : No Endometrial CA: No Polycystic Ovaries: No Therapeutic (s) & number: No Tubal Ligation: No Spontaneous : 0 - Immunization History Immunization Up to Date: Yes - Suicide/Smoking/Psychosocial Hx Smoking History: Never smoked Have you smoked in the past 12 months: No Number of Cigarettes Smoked Daily: 0 Hx Alcohol Use: No Drug/Substance Use Hx: No Substance Use Type: None Hx Substance Use Treatment: No Review of Systems - Review of Systems Able to Perform ROS?: Yes Comments:: 02/08/18 19:58 General: admitted to fever, chills. denied night sweats, generalized weakness. HEENT: denied sore throat, rhinorrhea, ear pain. Heart: denied chest pain, palpitations, syncope, lower extremity swelling, diaphoresis. Respiratory: admitted to cough. denied shortness of breath, sputum production, hemoptysis. Abdomen: denied abdominal pain, nausea, vomiting, diarrhea, constipation, blood in stool. : denied dysuria, increased urinary frequency, hematuria, urinary incontinence , flank pain. Back: admitted to back pain. Musculoskeletal: denied joint pain, muscle pain, joint swelling. Neurological: denied headache, dizziness, numbness, tingling, weakness. Skin: denied rash, laceration, abrasion. *Physical Exam - Vital Signs Last Vital Signs Temp Pulse Resp BP Pulse Ox 99.8 F H 128 H 20 126/71 98 02/08/18 19:27 02/08/18 19:27 02/08/18 19:27 02/08/18 19:27 02/08/18 19:27 - Physical Exam Comments: 02/08/18 19:59 Constitutional: Well-nourished, Well-developed, appearing stated age. HEENT: head is normocephalic, atraumatic. EOMI. PERRLA. Neck: supple. Full ROM. Heart: regular rhythm. no murmurs, rubs or gallops. Lungs: clear to auscultation bilaterally. no crackles, rhonchi or wheezing. no stridor. Abdomen: soft, nontender. normal bowel sounds. no rebound, guarding, masses. Back: no midline t-spine, c-spine, or L-spine tenderness. no paraspinal L-spine or T-spine or C-spine tenderness. Full ROM. negative CVA tenderness bilaterally. Extremities: Peripheral pulses intact. No lower extremity edema. Neurological: CN 2-12 grossly intact. Moves all four extremities. Psych: awake, alert, oriented x3. Follows commands. Answers questions appropriately. Moderate Sedation - Procedure Monitoring Vital Signs: Procedure Monitoring Vital Signs Temperature 99.8 F H 02/08/18 19:27 Pulse Rate 128 H 02/08/18 19:27 Respiratory Rate 20 02/08/18 19:27 Blood Pressure 126/71 02/08/18 19:27 O2 Sat by Pulse Oximetry (%) 98 02/08/18 19:27 ED Treatment Course - LABORATORY CBC & Chemistry Diagram: 02/08/18 21:29 02/08/18 21:29 - ADDITIONAL ORDERS Additional order review: Laboratory Results 02/08/18 19:30 Urine Color Colorless Urine Appearance Clear Urine pH 6.0 Ur Specific [place] 1.001 L Urine Protein Negative Urine Glucose (UA) Negative Urine Ketones Negative Urine Blood 3+ H Urine Nitrite Negative Urine Bilirubin Negative Urine Urobilinogen Negative Ur Leukocyte Esterase Negative Medical Decision Making - Medical Decision Making 02/08/18 20:00 32 year old female with no PMH presented to ED for right sided back pain. She also complained of nonproductive cough and fever. Initial Vital Signs Temp Pulse Resp BP Pulse Ox 99.8 F H 128 H 20 126/71 98 02/08/18 19:27 02/08/18 19:27 02/08/18 19:27 02/08/18 19:27 02/08/18 19:27 Febrile. Tachycardic. Borderline tachypnea. No hypotension. No hypoxia on room air. Imaging ordered: CXR Labs ordered: UA/UC, CBC, CMP Medications ordered: tylenol PO 975 mg, 1000 cc bolus normal saline 02/08/18 20:15 Urine Test Results Urine Color Colorless 02/08/18 19:30 Urine Appearance Clear 02/08/18 19:30 Urine pH 6.0 (5.0-8.0) 02/08/18 19:30 Ur Specific [place] 1.001 (1.010-1.035) L 02/08/18 19:30 Urine Protein Negative (NEGATIVE) 02/08/18 19:30 Urine Glucose (UA) Negative (NEGATIVE) 02/08/18 19:30 Urine Ketones Negative (NEGATIVE) 02/08/18 19:30 Urine Blood 3+ (NEGATIVE) H 02/08/18 19:30 Urine Nitrite Negative (NEGATIVE) 02/08/18 19:30 Urine Bilirubin Negative (<2.0 mg/dL) 02/08/18 19:30 Ur Leukocyte Esterase Negative (NEGATIVE) 02/08/18 19:30 Urine Bacteria Rare /hpf (NONE SEEN) 02/08/18 19:30 No evidence of UTI. Blood in urine. Location and quality of pain unlikely to be secondary to kidney stone, but urine is positive for blood and patient is not on her menstrual period. Pain may be non-classic presentation of nephrolithiasis. Additional imaging ordered: spiral CT 02/08/18 21:23 CXR report: negative for acute pathology. CXR my read: sharp costophrenic angles. no infiltrate. no pneumothorax. no cardiomegaly. 02/08/18 21:55 CBC WBC 8.5 K/mm3 (4.0-10.0) 02/08/18 21:29 RBC 4.40 M/mm3 (3.60-5.2) 02/08/18 21:29 Hgb 13.6 GM/dL (10.7-15.3) 02/08/18 21:29 Hct 38.0 % (32.4-45.2) 02/08/18 21:29 MCV 86.3 fl (80-96) 02/08/18 21:29 MCH 30.8 pg (25.7-33.7) 02/08/18 21:29 MCHC 35.7 g/dl (32.0-36.0) 02/08/18 21:29 RDW 13.6 % (11.6-15.6) 02/08/18 21:29 Plt Count 278 K/MM3 (134-434) 02/08/18 21:29 MPV 7.6 fl (7.5-11.1) 02/08/18 21:29 Absolute Neuts (auto) 7.2 K/mm3 (1.5-8.0) 02/08/18 21:29 Neutrophils % 84.1 % (42.8-82.8) H D 02/08/18 21:29 Lymphocytes % 9.1 % (8-40) D 02/08/18 21:29 Monocytes % 6.2 % (3.8-10.2) 02/08/18 21:29 Eosinophils % 0.3 % (0-4.5) 02/08/18 21:29 Basophils % 0.3 % (0-2.0) 02/08/18 21:29 Nucleated RBC % 0 % (0-0) 02/08/18 21:29 No leukocytosis. No anemia. 02/08/18 22:11 CMP Sodium 136 mmol/L (136-145) 02/08/18 21:29 Potassium 4.0 mmol/L (3.5-5.1) 02/08/18 21:29 Chloride 104 mmol/L (98-107) 02/08/18 21:29 Carbon Dioxide 25 mmol/L (21-32) 02/08/18 21:29 Anion Gap 7 MMOL/L (8-16) L 02/08/18 21:29 BUN 9 mg/dL (7-18) 02/08/18 21:29 Creatinine 0.6 mg/dL (0.55-1.3) 02/08/18 21:29 Creat Clearance w eGFR > 60 (>60) 02/08/18 21:29 Random Glucose 97 mg/dL (74-106) 02/08/18 21:29 Calcium 8.6 mg/dL (8.5-10.1) 02/08/18 21:29 Total Bilirubin 0.4 mg/dL (0.2-1) 02/08/18 21:29 AST 16 U/L (15-37) 02/08/18 21:29 ALT 18 U/L (13-61) 02/08/18 21:29 Alkaline Phosphatase 84 U/L (45-117) 02/08/18 21:29 Total Protein 8.4 g/dl (6.4-8.2) H 02/08/18 21:29 Albumin 4.3 g/dl (3.4-5.0) 02/08/18 21:29 No electrolyte abnormalities. No SRUTHI. No transaminitis. Pt reported no improvement of pain. Toradol 30 mg IV ordered. 02/08/18 22:49 Pt reported pain improving with toradol. Pending CT spiral. 02/08/18 23:43 CT report: negative. Cough and fever likely viral illness. Back pain possibly musculoskeletal or viral muscle aches. Pt informed to follow up with PCP. Pt to be discharged. *DC/Admit/Observation/Transfer Diagnosis at time of Disposition: Cough - Discharge Dispostion Disposition: HOME Condition at time of disposition: Stable Decision to Admit order: No - Referrals Referrals: Jason Jha [Primary Care Provider] - - Patient Instructions Additional Instructions: You likely have a viral illness. Your X-ray and Cat-scan was normal. Your lab work was normal. Follow up with your primary care doctor in 1-2 days. Take tylenol over the counter for fever, take 1000 mg every 8 hours as needed. Take ibuprofen over the counter for pain, take 600 mg every 8 hours. Return to the Emergency Department for fever>105F, fever>5 days, worsening pain, or any other new, worsening or concerning symptoms. - Post Discharge Activity
[2018-02-08 19:51] LABS: URINE BACTERIA RARE /hpf (NONE SEEN)
[2018-02-08] MEDS ORDERED: ACETAMINOPHEN 325 MG TABLET (FP) PO ONE (19:58)
[2018-02-08] MEDS ORDERED: SODIUM CHLORIDE 1,000 ML IV STA (20:09)
--- NOTE | 2018-02-08 20:42 | PDOC ---
Attending Attestation - HPI HPI: 02/08/18 21:11 The patient is a 32 year old female, with a significant past medical history of , who presents to the emergency department with, right sided thoracic/lumbar back pain. Patient also endorses an associated nonproductive cough, fevers, chills, and nausea without emesis. She is positive for sick contacts. She denies recent dysuria, frequency, urgency or hematuria. She denies recent chest pain or shortness of breath. Allergies: NKA Past surgical history: , tubal ligation. Social history: Nonsmoker. Denies EtOH use and recreational drug use. Primary Care Physician: Dr. Jha - Physicial Exam PE: 02/08/18 21:25 GENERAL: Well-appearing, well-nourished. No apparent distress. HEENT: Normocephalic, atraumatic. PERRL, EOM intact. CARDIOVASCULAR: Normal S1, S2. Regular rate and rhythm. PULMONARY: Clear to auscultation bilaterally. ABDOMEN: Soft, non-distended, non-tender. +BACK: Right paraspinal waistline back pain. EXTREMITIES: Normal ROM in all four extremities. No gross deformities. SKIN: Warm, dry. No rash NEUROLOGICAL: No focal neurological deficits. <Stephane Kearney - Last Filed: 02/08/18 21:25> - Resident Resident Name: Gayatri Mcpherson - ED Attending Attestation I have performed the following: I have examined & evaluated the patient, The case was reviewed & discussed with the resident, I agree w/resident's findings & plan, Exceptions are as noted - Medical Decision Making 02/08/18 21:34 pt p/w rt back pain,nausea,fever,cough diff diag includes PNA,flu,kidney stones.pyelo 02/08/18 22:14 cxr no infiltrates appreciated cbc no leukocytosis UA no infection 02/08/18 23:39 Influenza swab is negative. Urinalysis only shows 5 WBCs, no evidence of urinary tract infection. Chemistries are all within normal limits. CBC is unremarkable. Spiral CT showed some mild dependent atelectasis of the lung bases. No evidence of obstructive uropathy. No hydronephrosis or nephrolithiasis. Some mild pelvic atelectasis in both kidneys related to moderate bladder distention. Gallbladder is normal contour without thickening. Umbilical hernia containing fat. No bowel obstruction. The appendix is normal. Mild/moderate fecal retention in the colon. Mild asymmetric prominence of the left ovary follow-up with ultrasound. No intra-abdominal free air or free fluid Patient has a cough and fever with a negative influenza swab, normal CBC and chest x-ray was negative for infiltrates. Impression viral syndrome. Patient will be discharged home with recommendations for OTC Tylenol, rest, fluids 02/09/18 02:19 <Yasmin Abreu - Last Filed: 02/09/18 02:20> Attestations - Attestations 02/08/18 21:11 Documentation prepared by Stephane Kearney, acting as site medical director for Yasmin Abreu MD. <Stephane Kearney - Last Filed: 02/08/18 21:25>
[2018-02-08 21:43] LABS: BASO % 0.3 % (0-2.0); EOS % 0.3 % (0-4.5); HEMOGLOBIN 13.6 GM/dL (10.7-15.3); LYMPH % 9.1 % (8-40); MCH 30.8 pg (25.7-33.7); MCHC 35.7 g/dl (32.0-36.0); MEAN CELL VOLUME 86.3 fl (80-96); MEAN PLT VOLUME 7.6 fl (7.5-11.1); MONO % 6.2 % (3.8-10.2); NEUT % 84.1 % (42.8-82.8); PLATELET COUNT 278 K/MM3 (134-434); RDW 13.6 % (11.6-15.6); WHITE BLOOD COUNT 8.5 K/mm3 (4.0-10.0)
[2018-02-08] MEDS ORDERED: ACETAMINOPHEN 325 MG TABLET (FP) ONE (21:54)
[2018-02-08 22:08] LABS: ALBUMIN 4.3 g/dl (3.4-5.0); ALK PHOS 84 U/L (45-117); ANION GAP 7 MMOL/L (8-16); BILIRUBIN,TOTAL 0.4 mg/dL (0.2-1); BLOOD UREA NITROGEN 9 mg/dL (7-18); CALCIUM 8.6 mg/dL (8.5-10.1); CHLORIDE 104 mmol/L (98-107); CO2 25 mmol/L (21-32); CREATININE 0.6 mg/dL (0.55-1.3); GLUCOSE,RANDOM 97 mg/dL (74-106); SGOT/AST 16 U/L (15-37); SGPT/ALT 18 U/L (13-61); SODIUM 136 mmol/L (136-145); TOT PROT 8.4 g/dl (6.4-8.2)
[2018-02-08] MEDS ORDERED: KETOROLAC TROMETHAMINE 30 MG/1 ML VIAL IVPUSH ONE (22:10)
[2018-02-08] MEDS ORDERED: KETOROLAC TROMETHAMINE 30 MG/1 ML VIAL ONE (22:29)
== END 2018-02-09 00:37 | disposition home or self-care (01) ==
LOC: JER 19:12
PROC: 3E0333Z Introduction of Anti-inflammatory into Peripheral Vein, Percutaneous Approach (ICD-10-PCS; principal; 2018-02-08)
PROC: 3E0337Z Introduction of Electrolytic and Water Balance Substance into Peripheral Vein, Percutaneous Approach (ICD-10-PCS; 2018-02-08)
DX: R05 Cough (principal)
CPT/HCPCS: 36415; 71046-TC-FY; 74176; 80053; 81003; 81015; 84703; 85025; 87086; 87804; 96361; 96374; 99281-25; J7030

== ENCOUNTER 2018-12-08 20:48 | Emergency (ER) | payer OTHER ==
--- NOTE | 2018-12-08 20:52 | PDOC ---
Rapid Medical Evaluation Time Seen by Provider: 12/08/18 20:49 Medical Evaluation: Allergies Allergy/AdvReac Type Severity Reaction Status Date / Time No Known Allergies Allergy Verified 02/08/18 19:24 12/08/18 20:49 I have performed a brief in-person evaluation of this patient. The patient presents with a chief complaint of: fever, cough x 3 days. saw urgent care on tues but still coughing. Pertinent physical exam findings: well appearing, lungs ctab I have ordered the following: nothing The patient will proceed to the ED for further evaluation. Discharge Disposition - Diagnosis Cough - Referrals - Patient Instructions - Post Discharge Activity
[2018-12-08 20:55] VITALS: BP 124/77; PULSE 92; TEMP 98.3; BMI 33.6
[2018-12-08] MEDS ORDERED: ALBUTEROL SO4 2.5/IPRATROPIUM 0.5 INH SOL 3 ML VIAL.NEB. NEB ONE ×3 (21:29→21:45)
[2018-12-08] MEDS ORDERED: predniSONE 20 MG TABLET (UD) PO ONE (21:30)
--- NOTE | 2018-12-08 21:30 | PDOC ---
History of Present Illness - General Chief Complaint: Cold Symptoms Stated Complaint: COUGH Time Seen by Provider: 12/08/18 20:49 History Source: Patient - History of Present Illness Initial Comments: 12/08/18 22:29 Chief complaint: Cough Patient is a 33-year-old female with no significant medical problems who states she is been coughing for the last several days, she had a fever, the fever is gone away, she went to an urgent care earlier in the week who gave her albuterol inhaler. She states that made her cough more. Patient no longer has fever. GENERAL/CONSTITUTIONAL: No fever, weakness. dizziness HEAD, EYES, EARS, NOSE AND THROAT: No change in vision. No ear pain or discharge. No sore throat. CARDIOVASCULAR: No chest pain RESPIRATORY: No shortness of breath +cough GASTROINTESTINAL: No pain, nausea, vomiting, diarrhea or constipation GENITOURINARY: No dysuria MUSCULOSKELETAL: No neck or back pain SKIN: No rash NEUROLOGIC: No headache, vertigo, loss of consciousness, or loss of sensation. GENERAL: The patient is awake, alert, and fully oriented, in no acute distress. HEAD: Normal with no signs of trauma. EYES: Pupils equal, round and reactive to light, sclera anicteric, conjunctiva clear. ENT: pharynx: no erythema, no exudate, uvula midline NECK: supple CHEST: Wheezing bilaterally, nontender, rr ABD: soft, nontender BACK: no tenderness or signs of injury EXTREMITIES: Normal range of motion, no edema. NEUROLOGICAL: Normal speech, normal gait. SKIN: Warm, Dry Past History - Past Medical History Allergies/Adverse Reactions: Allergies Allergy/AdvReac Type Severity Reaction Status Date / Time No Known Allergies Allergy Verified 12/08/18 20:55 Home Medications: Ambulatory Orders Albuterol Sulfate Inhaler - [Ventolin HFA Inhaler -] 1 - 2 inh PO Q4H #1 inhaler 07/05/17 predniSONE [Deltasone -] 40 mg PO DAILY #8 tablet 12/08/18 Asthma: No Cancer: No Cardiac Disorders: No COPD: No Diabetes: No GI Disorders: Yes (umbilical hernia) HTN: No Seizures: No Thyroid Disease: No - Reproductive History (#): 2 Para: 3 Cervical CA: No Dysfunctional Uterine Bleeding: No Ectopic : No Endometrial CA: No Polycystic Ovaries: No Therapeutic (s) & number: No Tubal Ligation: No Spontaneous : 0 - Immunization History Immunization Up to Date: Yes - Psycho Social/Smoking Cessation Hx Smoking History: Never smoked Have you smoked in the past 12 months: No Number of Cigarettes Smoked Daily: 0 Hx Alcohol Use: No Drug/Substance Use Hx: No Substance Use Type: None Hx Substance Use Treatment: No *Physical Exam - Vital Signs Last Vital Signs Temp Pulse Resp BP Pulse Ox 98.3 F 92 H 18 124/77 95 12/08/18 20:50 12/08/18 20:50 12/08/18 20:50 12/08/18 20:50 12/08/18 20:50 Medical Decision Making - Medical Decision Making 12/08/18 22:41 Healthy 33-year-old female, with URI symptoms and fever earlier in the week, fever gone who is wheezing. Likely reactive. Patient will be given DuoNeb's, and prednisone. Patient is not in any respiratory distress. Discussed issues, findings, results, applicable medications and treatments and follow-up. All these were understood and all questions were answered Discharge - Discharge Information Problems reviewed: Yes Clinical Impression/Diagnosis: Reactive airway disease Qualifiers: Asthma severity: unspecified severity Asthma persistence: unspecified Asthma complication type: with acute exacerbation Qualified Code(s): J45.901 - Unspecified asthma with (acute) exacerbation Condition: Stable Disposition: HOME - Admission No - Additional Discharge Information Prescriptions: predniSONE [Deltasone -] 40 mg PO DAILY #8 tablet - Follow up/Referral Referrals: Jason Fortune MD [Primary Care Provider] - Prasanth Figueredo MD [Staff Physician] - - Patient Discharge Instructions Patient Printed Discharge Instructions: Reactive Airway Disease-Adult Additional Instructions: Use albuterol inhaler, 2 puffs every 4 hours as needed for wheezing. Starting tomorrow, take prednisone 40 mg once daily until finished. Return to the ER if fever, shortness of breath or getting sicker. Otherwise follow-up with your doctor in one to 2 days - Post Discharge Activity
[2018-12-08] MEDS ORDERED: predniSONE 20 MG TABLET (UD) ONE (21:32)
== END 2018-12-08 22:57 | disposition home or self-care (01) ==
LOC: JERFT 20:48 → JER 20:48 → JERFT 22:57
PROC: 3E0F7GC Introduction of Other Therapeutic Substance into Respiratory Tract, Via Natural or Artificial Opening (ICD-10-PCS; principal; 2018-12-08)
PROC: 3E0F7GC Introduction of Other Therapeutic Substance into Respiratory Tract, Via Natural or Artificial Opening (ICD-10-PCS; 2018-12-08)
DX: J45.901 Unspecified asthma with (acute) exacerbation (principal)
CPT/HCPCS: 99282-25